=== PATIENT | female | born 1955 | race Caucasian/White ===

== ENCOUNTER 2025-06-11 12:50 | Inpatient (IN) | payer MEDICARE, MEDICAID ==
[~2025-06-11] VITALS: Ht 162.6 cm; Wt 125.4 kg
[2025-06-11 13:32] LABS: PLATELET COUNT (AUTO) 213 K/uL (150-450); RED BLOOD CELL COUNT(AUTO) 3.74 MIL/uL (4.00-5.20); RED CELL DISTRIBUTION WIDTH 19.5 % (11.5-14.5); WHITE BLOOD COUNT (AUTO) 6.7 K/uL (4.5-11.0)
[2025-06-11 13:38] LABS: CALCIUM, TOTAL 8.3 mg/dL (8.8-10.5); CREATININE 1.31 mg/dL (0.60-1.30); GLOMERULAR FILTR. RATE CALC 40.0 mL/min (>60); GLUCOSE,RANDOM 124.0 mg/dL (70-110); SODIUM SERUM 133.0 mmol/L (136-145); UREA NITROGEN, BLOOD 18.0 mg/dL (7-18)
[2025-06-11 13:41] LABS: TROPONIN I-HIGH SENSITIVITY 26 ng/L (<51)
[2025-06-11 13:42] LABS: ASPARTATE AMINOTRANSFERASE 18.0 U/L (15-37); TOTAL PROTEIN, SERUM 5.8 g/dL (6.4-8.2)
[2025-06-11 13:59] LABS: CHOL/HDL RATIO 3.8 (3.9-5.7); LDL CHOL (CALC.) 79.0 mg/dL (0-130)
[2025-06-11] MEDS ORDERED: IOHEXOL 350 MG/ML 100 ML VIAL ONE (14:14)
[2025-06-11] MEDS ORDERED: SODIUM CHLORIDE 0.9% 100 ML ONE (14:14)
[2025-06-11] MEDS ORDERED: ZOLPIDEM TARTRATE 5 MG TABLET PO PRN (15:00)
[2025-06-11] MEDS ORDERED: ONDANSETRON HCL 4 MG/2 ML VIAL IVP PRN (15:00)
[2025-06-11] MEDS ORDERED: BISACODYL 10 MG RECTAL RECTAL SUPPOSITORY PR PRN (15:00)
[2025-06-11] MEDS ORDERED: MAGNESIUM HYDROXIDE SUSPENSION 30 ML UDCUP PO PRN (15:00)
[2025-06-11] MEDS: HEPARIN SODIUM,PORCINE 5,000 UNITS/ML VIAL SQ SCH (15:24)
[2025-06-11 17:44] VITALS: BP 150/74; PULSE 54; RESP 20; TEMP 97.5; O2SAT 98
[2025-06-11 18:59] LABS: TROPONIN I-HIGH SENSITIVITY 27 ng/L (<51)
[2025-06-11 19:51] VITALS: BP 148/55; PULSE 56; RESP 20; TEMP 97.5; O2SAT 99
[2025-06-11] MEDS: DOCUSATE SODIUM 100 MG CAPSULE PO SCH (22:54)
[2025-06-11] MEDS: ATORVASTATIN CALCIUM 20 MG TABLET PO SCH (22:54)
[2025-06-12] VITALS (7 sets, daily range): BP systolic 106–182; BP diastolic 49–83; PULSE 54–72; RESP 16–20; TEMP 97.5–99.3; O2SAT 96–100
[2025-06-12 00:21] LABS: GLUCOMETER DEV NAME(LOC) 5S.1E; GLUCOSE,POINT OF CARE 91 MG/DL (70-110)
[2025-06-12 01:02] LABS: TROPONIN I-HIGH SENSITIVITY 26 ng/L (<51)
[2025-06-12] MEDS: ACETAMINOPHEN 325 MG TABLET PO PRN (02:20)
[2025-06-12 03:51] LABS: APPEARANCE,URINE CLEAR (CLEAR); GLUCOSE, URINE (UA) NEGATIVE (NEGATIVE); LEUKOCYTE ESTERASE ,URINE NEGATIVE (NEGATIVE); NITRATE,URINE NEGATIVE (NEGATIVE); OCCULT BLOOD,URINE LARGE (NEGATIVE); PH,URINE DRUG SCREEN 6.0 (5.0-8.0); SPECIFIC GRAVITIY, URINE 1.015 (1.003-1.030)
[2025-06-12 03:58] LABS: ALCOHOL, URINE DRUG SCREEN NEGATIVE (NEGATIVE); AMPHET/METH SCREEN,URINE NEGATIVE (NEGATIVE); BARBITURATE SCREEN, URINE NEGATIVE (NEGATIVE); CANNABINOID SCREEN,URINE NEGATIVE (NEGATIVE); COCAINE SCREEN,URINE NEGATIVE (NEGATIVE); METHADONE SCREEN, URINE NEGATIVE (NEGATIVE)
[2025-06-12 04:07] LABS: SULFOSALICYLIC ACID,URINE 2+ (Negative)
[2025-06-12 04:08] LABS: SQUAMOUS EPITHELIAL CELL,UR Few /LPF (None Seen)
[2025-06-12 06:30] LABS: PLATELET COUNT (AUTO) 216 K/uL (150-450); RED BLOOD CELL COUNT(AUTO) 4.11 MIL/uL (4.00-5.20); RED CELL DISTRIBUTION WIDTH 19.3 % (11.5-14.5); WHITE BLOOD COUNT (AUTO) 7.7 K/uL (4.5-11.0)
[2025-06-12 06:50] LABS: GLUCOMETER DEV NAME(LOC) 5S.1E; GLUCOSE,POINT OF CARE 111 MG/DL (70-110)
[2025-06-12 07:04] LABS: CALCIUM, TOTAL 8.5 mg/dL (8.8-10.5); CREATININE 1.14 mg/dL (0.60-1.30); GLOMERULAR FILTR. RATE CALC 47.0 mL/min (>60); GLUCOSE,RANDOM 102.0 mg/dL (70-110); SODIUM SERUM 137.0 mmol/L (136-145); UREA NITROGEN, BLOOD 17.0 mg/dL (7-18)
[2025-06-12] MEDS ORDERED: AMLO-257 PO (07:47)
[2025-06-12] MEDS ORDERED: FERR325T27 PO (07:47)
[2025-06-12] MEDS ORDERED: LEVE500S33 PO (07:47)
[2025-06-12] MEDS ORDERED: INSLAN SQ (07:47)
[2025-06-12] MEDS ORDERED: METF-1211 PO (07:47)
[2025-06-12] MEDS ORDERED: PANT-31 PO (07:47)
[2025-06-12] MEDS ORDERED: CARV25 PO (07:47)
[2025-06-12] MEDS ORDERED: ATOR40TA28 PO (07:47)
[2025-06-12] MEDS ORDERED: LOSA-382 PO (07:47)
[2025-06-12] MEDS ORDERED: HYDR25TA84 PO (07:47)
[2025-06-12] MEDS ORDERED: SEMA0.258 SQ (07:47)
[2025-06-12] MEDS ORDERED: CLOP75TA83 PO (07:47)
[2025-06-12] MEDS ORDERED: MULT-1303 PO (07:47)
[2025-06-12] MEDS ORDERED: LEVE250T81 PO (07:48)
[2025-06-12] MEDS: ASPIRIN 81 MG CHEWABLE TABLET PO SCH (08:44)
[2025-06-12] MEDS: PANTOPRAZOLE SODIUM 40 MG DR TABLET PO SCH (08:44)
[2025-06-12] MEDS: HYDROCODONE/ACETAMINOPHEN 5-325 MG TABLET PO PRN (08:45)
[2025-06-12] MEDS ORDERED: INSULIN LISPRO 100 UNITS/ML SQ PRN (16:15)
[2025-06-12] MEDS ORDERED: DEXTROSE 50%-WATER 25 GM/50 ML SYRINGE IVP PRN (16:15)
[2025-06-12] MEDS: FUROSEMIDE 20 MG/2 ML VIAL IVP ONE (16:55)
[2025-06-12 17:48] LABS: COVID AG,FIA SOURCE NASAL SWAB
[2025-06-12 18:15] LABS: SARS-COV2 (COVID) ANTIGEN,FIA Negative (Negative)
[2025-06-12 20:00] LABS: GLUCOMETER DEV NAME(LOC) 5N.2C; GLUCOSE,POINT OF CARE 82 MG/DL (70-110)
[2025-06-12] MEDS: INSULIN GLARGINE,HUM.REC.ANLOG 100 UNITS/ML SQ SCH (20:31)
[2025-06-12] MEDS ORDERED: ATORVASTATIN CALCIUM 40 MG TABLET PO SCH (21:00)
[2025-06-12 22:31] LABS: GLUCOMETER DEV NAME(LOC) 5S.2E; GLUCOSE,POINT OF CARE 96 MG/DL (70-110)
[2025-06-13] VITALS (7 sets, daily range): BP systolic 109–169; BP diastolic 48–77; PULSE 53–69; RESP 16–19; TEMP 97.7–98.7; O2SAT 96–99
[2025-06-13 06:41] LABS: GLUCOMETER DEV NAME(LOC) 5N.2C; GLUCOSE,POINT OF CARE 96 MG/DL (70-110)
[2025-06-13 06:49] LABS: PLATELET COUNT (AUTO) 206 K/uL (150-450); RED BLOOD CELL COUNT(AUTO) 3.71 MIL/uL (4.00-5.20); RED CELL DISTRIBUTION WIDTH 19.0 % (11.5-14.5); WHITE BLOOD COUNT (AUTO) 7.1 K/uL (4.5-11.0)
[2025-06-13 08:17] LABS: CALCIUM, TOTAL 8.4 mg/dL (8.8-10.5); CREATININE 1.15 mg/dL (0.60-1.30); GLOMERULAR FILTR. RATE CALC 47.0 mL/min (>60); GLUCOSE,RANDOM 85.0 mg/dL (70-110); SODIUM SERUM 135.0 mmol/L (136-145); UREA NITROGEN, BLOOD 17.0 mg/dL (7-18)
[2025-06-13] MEDS ORDERED: PANTOPRAZOLE SODIUM 40 MG DR TABLET PO SCH (09:00)
[2025-06-13] MEDS: LOSARTAN POTASSIUM 50 MG TABLET PO SCH (09:02)
[2025-06-13] MEDS: FERROUS SULFATE 325 MG EC TABLET PO SCH (09:02)
[2025-06-13] MEDS: MULTIVITAMINS WITH MINERALS, THERAPEUTIC TABLET PO SCH (09:02)
[2025-06-13] MEDS: CLOPIDOGREL BISULFATE 75 MG TABLET PO SCH (09:02)
[2025-06-13 12:45] LABS: GLUCOMETER DEV NAME(LOC) 5S.2E; GLUCOSE,POINT OF CARE 90 MG/DL (70-110)
[2025-06-13] MEDS: BISACODYL 10 MG RECTAL RECTAL SUPPOSITORY PR ONE (14:48)
[2025-06-13] MEDS: ATORVASTATIN CALCIUM 40 MG TABLET PO SCH (14:48)
[2025-06-13 18:41] LABS: GLUCOMETER DEV NAME(LOC) 5S.2E; GLUCOSE,POINT OF CARE 84 MG/DL (70-110)
[2025-06-13] MEDS: MORPHINE SULFATE 4 MG/ML SYRINGE IVP PRN (19:35)
[2025-06-14 05:19] VITALS: BP 148/50; PULSE 67; RESP 19; TEMP 98.2; O2SAT 97
[2025-06-14 06:16] LABS: GLUCOMETER DEV NAME(LOC) 5S.2E; GLUCOSE,POINT OF CARE 194 MG/DL (70-110)
[2025-06-14 06:16] LABS: GLUCOMETER DEV NAME(LOC) 5S.2E; GLUCOSE,POINT OF CARE 85 MG/DL (70-110)
[2025-06-14 06:51] LABS: PLATELET COUNT (AUTO) 184 K/uL (150-450); RED BLOOD CELL COUNT(AUTO) 3.28 MIL/uL (4.00-5.20); RED CELL DISTRIBUTION WIDTH 19.1 % (11.5-14.5); WHITE BLOOD COUNT (AUTO) 5.9 K/uL (4.5-11.0)
[2025-06-14 07:02] LABS: CALCIUM, TOTAL 8.2 mg/dL (8.8-10.5); CREATININE 1.06 mg/dL (0.60-1.30); GLOMERULAR FILTR. RATE CALC 51.0 mL/min (>60); GLUCOSE,RANDOM 79.0 mg/dL (70-110); SODIUM SERUM 139.0 mmol/L (136-145); UREA NITROGEN, BLOOD 18.0 mg/dL (7-18)
[2025-06-14 10:00] VITALS: BP 145/60; PULSE 61; RESP 18; TEMP 97.3; O2SAT 99
[2025-06-14 12:30] LABS: GLUCOMETER DEV NAME(LOC) 5N.2C; GLUCOSE,POINT OF CARE 111 MG/DL (70-110)
[2025-06-14 13:30] VITALS: BP 134/65; PULSE 58; RESP 18; TEMP 97.5; O2SAT 96
[2025-06-14 15:47] VITALS: BP 155/60; PULSE 61; RESP 18; TEMP 97.7; O2SAT 98
== END 2025-06-14 16:05 | DRG 64 ==
LOC: EMS 12:50 → EDH 14:52 → 5N 17:23
PROVIDERS: ADMIT Internal Medicine; ATTEND Internal Medicine
DX: I63.9 Cerebral infarction, unspecified (principal); I50.33 Acute on chronic diastolic (congestive) heart failure; I69.351 Hemiplegia and hemiparesis following cerebral infarction affecting right dominant side; I16.1 Hypertensive emergency; I11.0 Hypertensive heart disease with heart failure; E11.65 Type 2 diabetes mellitus with hyperglycemia; I69.322 Dysarthria following cerebral infarction; D64.9 Anemia, unspecified; N17.9 Acute kidney failure, unspecified; I10 Essential (primary) hypertension; Z20.822 Contact with and (suspected) exposure to COVID-19; R29.810 Facial weakness
CPT/HCPCS: 70496; 70498; 70551; 71045; 80048; 80053; 80061; 80307; 81001; 81002; 82271; 82948; 82962; 83036; 83735; 83880; 84145; 84443; 84484; 85025; 85045; 85610; 85730; 86850; 86900; 86901; 87081; 92526; 92610; 93005; 93306; 93880; 96372; 97110; 97112; 97163; 97166; 97530; 97535; 99285; J1644; J1815; J1938; J2270; J7050; 36415-L1; 36415-TC; 70450; 70450-TC